=== PATIENT | male | born 1990 | race Hispanic/Latino ===

== ENCOUNTER 2017-03-07 17:24 | Emergency (ER) | payer OTHER ==
[2017-03-07 17:57] VITALS: BMI 29.9
[2017-03-07] MEDS ORDERED: Sodium Chloride 0.9% 1,000 ML IV ONE (19:06)
[2017-03-07] MEDS ORDERED: Sodium Chloride 0.9% 1,000 ML ONE (19:45)
[2017-03-07 19:48] LABS: BASO # 0.1 K/uL (0.0-0.2); BASO % 0.8 % (0.0-2.0); EOS # 0.2 K/uL (0.0-0.7); EOS % 2.4 % (0.0-4.0); HEMATOCRIT 48.6 % (35.0-51.0); LYMPH # 1.7 K/uL (1.0-4.3); LYMPH % 21.3 % (20.0-40.0); MEAN CELL VOLUME 89.1 fL (80.0-94.0); MEAN CORPUSCULAR HEMOGLOBIN 30.9 pg (27.0-31.0); MEAN CORPUSCULAR HGB CONC 34.6 g/dL (33.0-37.0); MEAN PLATELET VOLUME 8.2 fL (7.2-11.7); MONO # 0.5 K/uL (0.0-0.8); MONO % 6.1 % (0.0-10.0); RED CELL DISTRIBUTION WIDTH 12.7 % (11.5-14.5); WHITE BLOOD COUNT 8.2 K/uL (4.8-10.8)
[2017-03-07 20:05] LABS: ALKALINE PHOSPHATASE 67 U/L (38-126); ALT/SGPT 92 U/L (21-72); AST/SGOT 44 U/L (17-59); BILIRUBIN,TOTAL 0.8 mg/dL (0.2-1.3); BLOOD UREA NITROGEN 11 mg/dL (9-20); CALCIUM 8.8 mg/dl (8.6-10.4); CARBON DIOXIDE 26 mmol/L (22-30); CHLORIDE 98 mmol/L (98-107); GFR AFRICAN-AMERICAN > 60; GLUCOSE,RANDOM 93 mg/dL (75-110); MAGNESIUM 1.9 mg/dL (1.6-2.3); SODIUM 137 mmol/L (132-148); TOTAL PROTEIN 9.2 g/dL (6.3-8.3)
[2017-03-07 20:10] LABS: ALB/GLOB RATIO 1.1 (1.0-2.1)
--- NOTE | 2017-03-07 20:55 | C.PDOC ---
Time Seen by Provider: 03/07/17 18:57 Chief Complaint (Nursing): Palpitations History Per: Patient Onset/Duration Of Symptoms: Days (about 1-2 weeks), Intermittent Episodes ( lasting a few seconds) Current Symptoms Are (Timing): Still Present Quality Of Symptoms: Extra Beats Severity: Moderate Exacerbating Factor(s): Pos: Recent Cocaine Use, Injestion Of Caffeinated Beverages Additional History Per: Prior Records Past Medical History Reviewed: Historical Data, Nursing Documentation, Vital Signs Vital Signs: Last Vital Signs Temp 98.6 F 03/07/17 17:57 Pulse 87 03/07/17 17:57 Resp 18 03/07/17 17:57 BP 157/95 H 03/07/17 17:57 Pulse Ox 99 03/07/17 17:57 - Medical History PMH: No Chronic Diseases Family History: States: Unknown Family Hx - Social History Hx Tobacco Use: Yes Hx Alcohol Use: Yes Hx Substance Use: Yes (Snorts Cocaine occasionally) - Immunization History Hx Tetanus Toxoid Vaccination: No Hx Influenza Vaccination: No Hx Pneumococcal Vaccination: No Review Of Systems Except As Marked, All Systems Reviewed And Found Negative. Constitutional: Negative for: Fever ENT: Negative for: Throat Pain Cardiovascular: Positive for: Palpitations Respiratory: Negative for: Shortness of Breath Gastrointestinal: Negative for: Vomiting, Abdominal Pain Musculoskeletal: Negative for: Neck Pain, Back Pain, Leg Pain Skin: Negative for: Rash Neurological: Negative for: Weakness, Numbness, Seizures Physical Exam - Physical Exam Appears: Non-toxic, No Acute Distress Skin: Normal Color, Warm, Dry, No Rash Head: Atraumatic, Normacephalic Eye(s): bilateral: Normal Inspection, PERRL, EOMI Neck: Normal ROM, Supple Cardiovascular: Rhythm Regular Respiratory: Normal Breath Sounds, No Accessory Muscle Use Gastrointestinal/Abdominal: Soft, No Tenderness Back: No CVA Tenderness Extremity: Normal ROM, No Pedal Edema, No Calf Tenderness Neurological/Psych: Oriented x3, Normal Motor, Normal Sensation ED Course And Treatment - Laboratory Results Result Diagrams: 03/07/17 19:43 03/07/17 19:43 Lab Interpretation: No Acute Changes ECG: Interpreted By Me, Viewed By Me ECG Rhythm: Sinus Rhythm ECG Interpretation: No Acute Changes Rate From EC O2 Sat by Pulse Oximetry: 99 Pulse Ox Interpretation: Normal Reassessment Condition: Improved Progress - Interventions Interventions:: Observation, Intravenous fluid - Data Reviewed Data Reviewed: Lab, EKG, Old records - Patient Plan Patient Plan: Discharge, F/U with PCP Disposition Counseled Patient/Family Regarding: Studies Performed, Diagnosis, Need For Followup, Smoking Cessation - Disposition Referrals: Ananth Gonzalez MD [Staff Provider] - Disposition: HOME/ ROUTINE Disposition Time: 20:56 Condition: STABLE Additional Instructions: Avoid illicit drug or caffeine. Follow up with a Residential Subcontractor. Return to the ER if you pass out, develop worsening of symptoms or if you have any other concerns. Instructions: Palpitations (ED) - Clinical Impression Clinical Impression: Palpitations
[2017-03-07 21:12] VITALS: BP 140/82; PULSE 70; RESP 16; TEMP 98.2; O2SAT 100
--- NOTE | 2017-03-09 10:32 | CARD ---
APPROVED REPORT EKG Measurement Heart [id number] <Conclusion> Normal sinus rhythm Normal ECG
== END 2017-03-07 21:16 | disposition home or self-care (01) ==
LOC: C.ER 17:24
DX: R00.2 Palpitations (principal)
CPT/HCPCS: 80053; 80324; 80345; 80346; 80349; 80353; 80358; 80361; 83735; 83992; 84484; 85025; 93005; 96360; 99284; J7040